=== PATIENT | female | born 1945 | race Caucasian/White ===

== ENCOUNTER → 2017-01-09 | Outpatient (CLI) | payer MEDICARE, OTHER ==
[2017-01-09 08:43] LABS: CREATININE SERUM 1.37 MG/DL (0.60-1.30)
--- NOTE | 2017-01-09 13:00 | Diagnostic Imaging Report ---
PROCEDURE: CT chest without contrast. TECHNIQUE: Multiple contiguous axial images were obtained through the chest without the use of intravenous contrast. INDICATION: Shortness of breath. FINDINGS: There is minimal scarring or atelectasis seen in the lung bases. There is otherwise no significant fibrotic changes or thickening in the pulmonary interstitium on either side. There is no bronchiectasis. No emphysema changes. No significant consolidation, mass or suspicious nodule is seen. The thoracic aorta is normal in caliber. The heart size is normal. Prominent coronary artery calcifications are seen. No pericardial or pleural effusion. No mediastinal or axillary lymphadenopathy. The hilar vessels are not opacified with no obvious large hilar lymph nodes or mass. The osseous structures demonstrate prominent degenerative changes and large syndesmophytes. Sections in the upper abdomen demonstrate a fluid attenuation lesion in the upper aspect of the left kidney measuring 1.7 cm, probably a simple cyst. Calcified granulomas in the spleen which is not enlarged is seen. IMPRESSION: 1. Minimal atelectasis or scarring in the lung bases seen. 2. Prominent coronary artery atherosclerotic calcifications. Dictated by: Dictated on workstation # [id number]
== END ==
LOC: RAD 08:04
PROVIDERS: ATTEND Nurse Practitioner Family
DX: I25.10 Atherosclerotic heart disease of native coronary artery without angina pectoris (principal); R06.00 Dyspnea, unspecified; R09.02 Hypoxemia; G47.30 Sleep apnea, unspecified
CPT/HCPCS: 36415; 71250; 82565; 84520

== ENCOUNTER → 2017-01-21 | Outpatient (CLI) | payer MEDICARE, OTHER ==
[~2017-01-21] MED LIST: RT-ALBUTEROL SULF 2.5 MG/3 ML PRE-MIX VIAL IH ONE
== END ==
LOC: RT 10:54 → EDUNIT# 11:45
PROVIDERS: ATTEND Nurse Practitioner Family
DX: R09.02 Hypoxemia (principal); R06.00 Dyspnea, unspecified; J84.10 Pulmonary fibrosis, unspecified
CPT/HCPCS: 94060; 94640; 94726; 94729